=== PATIENT | female | born 1955 | race Caucasian/White ===

== ENCOUNTER 2021-07-18 05:34 | Day surgery (SDC) | payer MEDICARE, OTHER ==
[2021-07-17 13:25] LABS: COVID AG,FIA SOURCE NASOPHARYNGEAL
[2021-07-17 14:03] LABS: BASOPHILS % (AUTO) 0.4 % (0.0-2.0); EOSINOPHILS % (AUTO) 2.2 % (1.0-6.0); HEMATOCRIT 40.8 % (36-46); HEMOGLOBIN 13.8 g/dL (12.0-16.0); LYMPHOCYTES # (AUTO) 1.1 K/uL (1.0-4.8); LYMPHOCYTES % (AUTO) 18.9 % (22.0-44.0); MEAN CORPUSCULAR HEMOGLOBIN 32.3 pg (26.0-34.0); MEAN CORPUSCULAR HGB CONC 33.8 G/dL (31.0-37.0); MEAN CORPUSCULAR VOLUME 96 fL (80-100); MONOCYTES # (AUTO) 0.5 K/uL (0.1-1.0); MONOCYTES % (AUTO) 8.6 % (2.0-9.0); NEUTROPHILS # (AUTO) 3.9 K/uL (1.8-7.7); NEUTROPHILS % (AUTO) 69.9 % (40.0-70.0); PLATELET COUNT (AUTO) 140 K/uL (150-450); RED BLOOD CELL COUNT(AUTO) 4.27 MIL/uL (4.00-5.20); RED CELL DISTRIBUTION WIDTH 13.5 % (11.5-14.5)
[~2021-07-18] VITALS: Ht 154.9 cm; Wt 58.6 kg
[2021-07-18] MEDS ORDERED: PROPOFOL 1% 20 ML VIAL IVP ONE (05:35)
[2021-07-18] MEDS ORDERED: KETOROLAC TROMETHAMINE 60 MG/2 ML VIAL IM ONE (05:35)
[2021-07-18] MEDS ORDERED: FentaNYL CITRATE PF 100 MCG/2 ML VIAL IVP ONE (05:35)
[2021-07-18] MEDS ORDERED: MIDAZOLAM HCL 2 MG/2 ML VIAL IVP ONE (05:35)
[2021-07-18] MEDS ORDERED: ONDANSETRON HCL 4 MG/2 ML VIAL IVP ONE (05:35)
[2021-07-18] MEDS ORDERED: RINGERS SOLUTION,LACTATED 0 ML IV ONE (05:44)
[2021-07-18] MEDS ORDERED: SODIUM CHLORIDE 0.9% 1,000 ML ONE (05:45)
[2021-07-18] MEDS ORDERED: RINGERS SOLUTION,LACTATED 1,000 ML IV ONE (06:00)
[2021-07-18] MEDS ORDERED: SODIUM CHLORIDE 0.9% 1,000 ML IV ONE (06:00)
[2021-07-18] MEDS ORDERED: CeFAZolin 2 GM/DEXTROSE 50 ML IV ONE ×2 (06:17→07:30)
[2021-07-18] MEDS ORDERED: BUPIVACAINE 0.25%/EPI 1:200,000/PF 10 ML VIAL ONE (06:51)
[2021-07-18] MEDS ORDERED: BUPIVACAINE HCL/PF 0.25% 30 ML VIAL ONE (06:52)
[2021-07-18] MEDS ORDERED: HYDR-4723 PO (08:13)
[2021-07-18] MEDS ORDERED: MEPERIDINE-PF 25 MG/ML VIAL IVP PRN (08:30)
[2021-07-18] MEDS ORDERED: HYDROmorphone 2 MG/ML VIAL IVP PRN (08:30)
[2021-07-18] MEDS ORDERED: FentaNYL CITRATE PF 100 MCG/2 ML VIAL IVP PRN (08:30)
[2021-07-18] MEDS ORDERED: OXYGEN THERAPY IH SCH (20:00)
== END 2021-07-18 10:30 | disposition home or self-care (01) ==
LOC: SURGERY 05:34
PROVIDERS: ATTEND Surgery
DX: C96.9 Malignant neoplasm of lymphoid, hematopoietic and related tissue, unspecified (principal); Z79.899 Other long term (current) drug therapy; I10 Essential (primary) hypertension; Z79.82 Long term (current) use of aspirin; Z98.890 Other specified postprocedural states; Z90.710 Acquired absence of both cervix and uterus
CPT/HCPCS: 36415; 38531; 85025; 87426; 88305; 88341; 88342; 93005; C9803; J0690; J1885; J2250; J2405; J2704; J3010; J3490; J7030; J7120; Z7610